=== PATIENT | female | born 1990 ===

== ENCOUNTER 2023-10-27 21:20 | Inpatient (IN) | payer OTHER ==
[2023-10-27] MEDS: ELECTROLYTE-148 SOLN 500 ML IV ONE (21:45)
[2023-10-27] MEDS: OXYTOCIN 20 UNITS in 0.9% NS 20 UNIT/1,000 ML INFUS.BAG IV SCH (22:48)
[2023-10-27 22:58] LABS: HEMOGLOBIN 13.2 GM/dL (10.7-15.3); MCH 31.1 pg (25.7-33.7); MCHC 33.1 g/dl (32.0-36.0); MEAN CELL VOLUME 93.9 fl (80-96); MEAN PLT VOLUME 9.3 fl (7.5-11.1); PLATELET COUNT 306 10^3/uL (134-434); RBC 4.26 M/mm3 (3.60-5.2); RDW 14.8 % (11.6-15.6); WHITE BLOOD COUNT 16.8 K/mm3 (4.0-10.0)
[2023-10-27 23:05] LABS: INR 0.9 (0.83-1.09); PROTHROMBIN TIME (PATIENT) 10.2 SEC (9.7-13.0)
[2023-10-27 23:08] LABS: ACTIVATED PTT 22.7 SECONDS (25.2-36.5)
[2023-10-27] MEDS: IBUPROFEN 600 MG TABLET (FP) PO PRN (23:15)
[2023-10-27 23:21] LABS: POTASSIUM 4.3 mmol/L (3.5-5.1)
[2023-10-27 23:23] LABS: CALCIUM 8.4 mg/dL (8.5-10.1)
[2023-10-27 23:24] LABS: ALBUMIN 2.8 g/dl (3.4-5.0); BLOOD UREA NITROGEN 13.9 mg/dL (7-18)
[2023-10-27 23:27] LABS: CREATININE 0.5 mg/dL (0.55-1.3)
[2023-10-27 23:28] LABS: ANISOCYTOSIS 1+; BILIRUBIN,TOTAL 0.4 mg/dL (0.2-1); MACROCYTOSIS 0; TOT PROT 6.9 g/dl (6.4-8.2)
[2023-10-27 23:35] LABS: CORD BASE EXCESS -2.5 mmol/L (0-2); CORD BASE EXCESS -3.8 mmol/L (0-2); CORD HCO3 22.9 mmHg (20-29); CORD HCO3 24.3 mmHg (20-29); CORD PCO2 47.3 mmHg (30-78); CORD PCO2 49.2 mmHg (30-78); CORD pH 7.303 (7.14-7.44); CORD pH 7.312 (7.14-7.44)
[2023-10-27 23:38] LABS: EPI CELLS 22 /uL (0-25.1); HYALINE CASTS 2 /uL (0-3.1); URINE APPEARANCE CLEAR; URINE BACTERIA 24 /uL (0-1359); URINE BILIRUBIN NEGATIVE (NEGATIVE); URINE COLOR YELLOW; URINE GLUCOSE (UA) NEGATIVE (NEGATIVE); URINE KETONE NEGATIVE (NEGATIVE); URINE LEUK ESTERASE NEGATIVE (NEGATIVE); URINE NITRITE NEGATIVE (NEGATIVE); URINE PROTEIN NEGATIVE (NEGATIVE); URINE RBC 62 /uL (0-23.9); URINE WBC 8 /uL (0-25.8)
[2023-10-27 23:42] LABS: COCAINE, UR NEGATIVE (NEGATIVE); METHADONE, UR NEGATIVE (NEGATIVE); PHENCYCLIDINE,URINE NEGATIVE (NEGATIVE); URINE BARBITURATES NEGATIVE (NEGATIVE); URINE BENZODIAZEPINES NEGATIVE (NEGATIVE)
[2023-10-27 23:43] LABS: URINE AMPHETAMINES NEGATIVE (NEGATIVE)
[2023-10-27 23:47] LABS: OPIATES, URI NEGATIVE (NEGATIVE)
[2023-10-27 23:51] LABS: SYPHILIS W/ RPR CONF NON-REACTIVE (NONREACTIVE)
[2023-10-27 23:54] VITALS: BMI 27.4
[2023-10-28] MEDS ORDERED: BENZOCAINE 28 GM HEMORRHOIDAL OINTMENT TP PRN (00:16)
[2023-10-28] MEDS ORDERED: oxyCODONE HCL 5 MG TABLET PO PRN (00:16)
[2023-10-28] MEDS ORDERED: METHYLERGONOVINE MALEATE 0.2 MG/1 ML AMP IM PRN (00:16)
[2023-10-28] MEDS ORDERED: BENZOCAINE 20% 57 GM BOTTLE TP PRN (00:16)
[2023-10-28] MEDS ORDERED: BISACODYL 10 MG SUPP.RECT RC PRN (00:16)
[2023-10-28] MEDS ORDERED: ACETAMINOPHEN 325 MG TABLET (FP) PO PRN (00:16)
[2023-10-28] MEDS ORDERED: WITCH HAZEL 50% (TUCKS) 40 PAD/JAR PAD TP PRN (00:16)
[2023-10-28 00:19] LABS: HIV INTERPRETATION NEGATIVE (NEGATIVE)
[2023-10-28] MEDS: SENNOSIDES/DOCUSATE COMBO (SENNA PLUS) TABLET (UD) PO PRN (22:07)
[2023-10-29 08:48] LABS: HEMATOCRIT 33.1 % (32.4-45.2); HEMOGLOBIN 10.9 GM/dL (10.7-15.3); MCHC 32.9 g/dl (32.0-36.0); MEAN CELL VOLUME 94.2 fl (80-96); MEAN PLT VOLUME 8.6 fl (7.5-11.1); PLATELET COUNT 244 10^3/uL (134-434); RBC 3.51 M/mm3 (3.60-5.2); RDW 15.1 % (11.6-15.6); WHITE BLOOD COUNT 15.2 K/mm3 (4.0-10.0)
[2023-10-29 09:56] VITALS: BP 111/68; PULSE 86; RESP 17; TEMP 98.5
[2023-10-29 11:14] LABS: ANISOCYTOSIS 0; HELMET CELLS 0; HOWELL-JOLLY BODIES 0; MACROCYTOSIS 0; OVALOCYTE 0; ROULEAU 0; SICKELED CELLS 0; TARGET CELLS 0; TEAR DROP CELLS 0; TOXIC GRANULATION 0
== END 2023-10-29 14:15 | disposition home or self-care (01) | DRG 560 ==
LOC: JLDR 21:20 → J3W 10-28 01:38
PROVIDERS: ADMIT Obstetrics & Gynecology Obstetrics; ATTEND Obstetrics & Gynecology Obstetrics
PROC: 10E0XZZ Delivery of Products of Conception, External Approach (ICD-10-PCS; principal; 2023-10-27)
PROC: 0KQM0ZZ Repair Perineum Muscle, Open Approach (ICD-10-PCS; 2023-10-27)
DX: O42.013 Preterm premature rupture of membranes, onset of labor within 24 hours of rupture, third trimester (principal); O70.1 Second degree perineal laceration during delivery; Z3A.36 36 weeks gestation of pregnancy; Z37.0 Single live birth
CPT/HCPCS: 36415; 36600; 59409; 80053; 80307; 81003; 82803; 85025; 85610; 85730; 86780; 86803; 86850; 86900; 86901; 87340; 87389